=== PATIENT | male | born 1960 | race Caucasian/White ===

== ENCOUNTER 2024-06-14 09:26 | Emergency (ER) | payer SELFPAY ==
[~2024-06-14] VITALS: Ht 185.4 cm; Wt 75.0 kg
[2024-06-14 09:39] VITALS: BP 151/96; PULSE 68; RESP 16; TEMP 98.3; O2SAT 98
== END 2024-06-14 11:22 | disposition left against medical advice (07) ==
LOC: EDBD 09:26 → ER 09:26
DX: R56.9 Unspecified convulsions (principal); Z53.21 Procedure and treatment not carried out due to patient leaving prior to being seen by health care provider